=== PATIENT | female | born 1990 | race African-American/Black ===

== ENCOUNTER 2021-04-14 15:36 | Emergency (ER) | payer OTHER ==
[~2021-04-14] VITALS: Ht 162.6 cm; Wt 108.9 kg
[2021-04-14 16:06] LABS: URINE BILIRUBIN NEGATIVE (Negative); URINE BLOOD NEGATIVE (Negative); URINE CLARITY SL CLOUDY; URINE COLOR YELLOW; URINE GLUCOSE-RANDOM* NEGATIVE (Negative); URINE KETONES NEGATIVE (Negative); URINE LEUKOCYTES-REFLEX TRACE (Negative); URINE NITRITE-REFLEX NEGATIVE (Negative); URINE PROTEIN (DIPSTICK) NEGATIVE (Negative); URINE SPECIFIC GRAVITY >= 1.030 (1.005-1.035); URINE UROBILINOGEN 0.2 E.U./dl (0.2-1.0)
[2021-04-14] MEDS ORDERED: PROAIR HFA8.5 GM INH (16:09)
[2021-04-14] MEDS ORDERED: LISINOPRIL10 MG PO (16:09)
[2021-04-14] MEDS ORDERED: ADVAIR 100-501 EACH PO (16:09)
[2021-04-14 16:30] LABS: ABSOLUTE NEUTROPHILS 2.9 thou/uL (1.4-8.2); BASOPHILS 1.3 % (0.0-2.0); EOSINOPHILS 5.5 % (0.0-3.0); HEMATOCRIT 38.2 % (37.0-47.0); HEMOGLOBIN 12.8 gm/dL (12.0-15.0); LYMPHOCYTES 34.5 % (24.0-44.0); MCH 31.3 pg (26.0-34.0); MCHC 33.4 g/dL (28.0-37.0); MCV 93.5 fL (80.0-100.0); MONOCYTES 6.7 % (1.0-8.0); PLATELET COUNT 207 thou/uL (150-400); RBC 4.09 mil/uL (4.20-5.00); RDW 13.1 % (10.5-14.5); WBC 5.5 thou/uL (4.0-11.0)
[2021-04-14 16:48] LABS: ANION GAP 11 mmol/L (7-16); BUN 9 mg/dL (7-18); CALCIUM 8.3 mg/dL (8.5-10.1); CHLORIDE 110 mmol/L (98-107); CO2 23 mmol/L (21-32); CREATININE 0.9 mg/dL (0.6-1.0); GLUCOSE 92 mg/dL (74-106); POTASSIUM 3.5 mmol/L (3.5-5.1); SODIUM 144 mmol/L (136-145)
[2021-04-14 16:57] LABS: ALBUMIN 3.2 g/dL (3.4-5.0); SGOT 12 U/L (15-37); SGPT 18 U/L (14-59); TOTAL PROTEIN 7.1 g/dL (6.4-8.2); TROPONIN-I <0.06 ng/mL (<0.06)
[2021-04-14 17:12] LABS: TOTAL BILIRUBIN 0.5 mg/dL (0.2-1.0)
[2021-04-14] MEDS ORDERED: ZOFRAN ODT4 MG PO (18:02)
[2021-04-14 18:03] VITALS: BP 118/73
--- NOTE | 2021-04-15 09:32 | EKG ---
[address] [address] ELECTROCARDIOGRAM REPORT Name: ML LIZARRAGA [facility]AMPUSDannyDanny#: [id number] Admission: 04/14/21 Attend Phys: Discharge: 04/14/21 Date of : [birth year] Report #: [id number] [facility] ED Test Date: 2021-04-14 Test Time: 17:12:48 Pat Name: ML LIZARRAGA Department: Room: Gender: F Applications Developer: veronica : 1990 Requested By: Jim Evangelista Order Number: [id number] MD: Jasbir Rae Measurements Intervals [place] Rate: 76 P: 34 VA: 168 QRS: 33 QRSD: 96 T: 35 QT: 393 QTc: 442 Interpretive Statements Sinus rhythm Borderline T abnormalities, anterior leads No previous ECG available for comparison Electronically Signed On 04-15-2021 9:32:27 CDT by Jasbir Rae [email or web address] <ELECTRONICALLY SIGNED> By: Jasbir Rae MD 04/15/21 0932 [id number] [id number] Jasbir [email or web address] MD /EPI
== END 2021-04-14 18:03 | disposition home or self-care (01) ==
LOC: ER 15:36
PROVIDERS: Emergency Medicine
DX: R42 Dizziness and giddiness (principal); R51.9 Headache, unspecified; Z79.51 Long term (current) use of inhaled steroids; Z79.899 Other long term (current) drug therapy

== ENCOUNTER 2021-07-08 17:48 | Emergency (ER) | payer OTHER ==
[~2021-07-08] VITALS: Ht 165.1 cm; Wt 110.2 kg
[~2021-07-08 17:48] MED LIST: ADVAIR 100-501 EACH PO; LISINOPRIL10 MG PO; PROAIR HFA8.5 GM INH; ZOFRAN ODT4 MG PO
[2021-07-08] MEDS ORDERED: JUNEL FE 1-201 EACH PO (18:01)
[2021-07-08 18:36] LABS: ABSOLUTE NEUTROPHILS 2.8 thou/uL (1.4-8.2); BASOPHILS 0.9 % (0.0-2.0); EOSINOPHILS 6.1 % (0.0-3.0); HEMATOCRIT 33.8 % (37.0-47.0); HEMOGLOBIN 11.2 gm/dL (12.0-15.0); MCH 31.1 pg (26.0-34.0); MCHC 33.1 g/dL (28.0-37.0); MCV 93.8 fL (80.0-100.0); MONOCYTES 5.4 % (1.0-8.0); PLATELET COUNT 200 thou/uL (150-400); POLYS 44.6 % (36.0-66.0); RDW 12.7 % (10.5-14.5); WBC 6.3 thou/uL (4.0-11.0)
[2021-07-08 18:40] LABS: CALCIUM 8.6 mg/dL (8.5-10.1); CREATININE 0.8 mg/dL (0.6-1.0); POTASSIUM 3.5 mmol/L (3.5-5.1)
[2021-07-08] MEDS ORDERED: FLEXERIL PO (21:37)
[2021-07-08] MEDS ORDERED: METRONIDAZOLE500 M4 PO (21:37)
[2021-07-08] MEDS ORDERED: HYDROCODON-ACE1 EAC7 PO (21:37)
[2021-07-08] MEDS ORDERED: DIFLUCAN150 MG PO (21:37)
[2021-07-08 22:04] VITALS: BP 114/70
== END 2021-07-08 22:06 | disposition home or self-care (01) ==
LOC: ER 17:48
PROVIDERS: Emergency Medicine
DX: S00.93XA Contusion of unspecified part of head, initial encounter (principal); S10.93XA Contusion of unspecified part of neck, initial encounter; N76.0 Acute vaginitis; I10 Essential (primary) hypertension; Z79.899 Other long term (current) drug therapy; Z91.010 Allergy to peanuts; Z88.0 Allergy status to penicillin; V89.2XXA Person injured in unspecified motor-vehicle accident, traffic, initial encounter; Y93.89 Activity, other specified; Y92.89 Other specified places as the place of occurrence of the external cause; Y99.8 Other external cause status